=== PATIENT | female | born 2000 | race Caucasian/White ===

== ENCOUNTER 2022-04-02 04:47 | Emergency (ER) | payer OTHER ==
--- NOTE | 2022-04-02 05:09 | ED Physician Documentation ---
PD HPI URI - Stated complaint Stated Complaint: BILAT EAR AND EYE PAIN - Chief complaint Chief Complaint: Heent - History obtained from History obtained from: Patient - History of Present Illness Timing - onset: How many days ago (few) Timing duration: Days (few) Timing details: Gradual onset (she states had URI, congestion, cough about a week ago and was improving, then has started with bilateral ear fullness, pain, and some ringing. Also now with medial eye discahrge and irritation both eyes. No eye pain.), Still present Associated symptoms: Fever (a week ago.), Ear pain (few days worsening, both ears.), Nasal congestion, Dry cough (improving). No: Sore throat Contributing factors: No: Sick contact Recently seen: Not recently seen Review of Systems Constitutional: reports: Fever Eyes: reports: Discharge, Irritation. denies: Decreased vision Ears: reports: Ear pain. denies: Drainage/discharge Nose: reports: Congestion, Sinus pressure / pain Skin: denies: Rash Neurologic: denies: Altered mental status, Headache PD PAST MEDICAL HISTORY - Past Medical History Cardiovascular: None Respiratory: None Endocrine/Autoimmune: None - Present Medications Home Medications: Ambulatory Orders Medication Instructions Recorded Confirmed Amoxicillin 500 mg PO TID #21 cap 04/02/22 Cetirizine [ZyrTEC] 10 mg PO BID #15 tablet 04/02/22 Ketorolac Tromethamine 2 drops EACHEYE TID 6 Days #5 ml 04/02/22 - Allergies Allergies/Adverse Reactions: Allergies Allergy/AdvReac Type Severity Reaction Status Date / Time No Known Drug Allergies Allergy Verified 04/02/22 04:52 PD ED PE NORMAL - Vitals Vital signs reviewed: Yes - General General: Alert and oriented X 3, No acute distress, Well developed/nourished - HEENT HEENT: PERRL, EOMI, Other (the eyes appear well with mild lower conjunctival redness and no discharge. ). No: Ears normal (canals are okay. both tms are red and fluid behind. No perforation. ) - Neck Neck: Supple, no meningeal sign, No adenopathy - Cardiac Cardiac: RRR, No murmur - Respiratory Respiratory: Clear bilaterally - Derm Derm: Normal color, Warm and dry, No rash - Neuro Neuro: Alert and oriented X 3, Normal speech Results - Vitals Vitals: Vital Signs - 24 hr 04/02/22 04/02/22 04:48 05:57 Temperature 36.4 C L Heart Rate 102 H 92 Respiratory 18 18 Rate Blood Pressure 132/105 H 133/78 H O2 Saturation 100 100 Oxygen O2 Source Room air PD Medical Decision Making - ED course Complexity details: considered differential (URI symptoms that were improving and now ears and eye drainage with apparent infection. Presume sinus/nasopharyngeal area secondary infection. ), d/w patient Departure - Departure Disposition: 01 Home, Self Care Clinical Impression: Otitis media, Conjunctival irritation Condition: Stable Record reviewed to determine appropriate education?: Yes Instructions: ED Otitis Media Acute Adult Follow-Up: Thad Padilla MD [Primary Care Provider] - Prescriptions: Amoxicillin 500 mg PO TID #21 cap Ketorolac Tromethamine 2 drops EACHEYE TID 6 Days #5 ml Cetirizine [ZyrTEC] 10 mg PO BID #15 tablet Comments: Your eardrums do appear infected. Given the timing of the symptoms in relation to the recent head cold, I be likely to think a secondary ear infection and this might be bacterial. We can treated with amoxicillin antibiotic 3 times daily for the next week. Also try to decrease the fluid buildup with cetirizine antihistamine twice daily for the next week. Saline no spray or drops to cleanse the nasal passageway we will try to help unclog the eustachian tubes so there is less ringing and pressure. You were given a dose of steroid anti-inflammatory here in the ER and that will last for a few days and should help as well. The eyes are likely irritated from a back pressuring of congestion from the sinus and nasal passage and does not appear to be a localized infection in the eyes itself. We can however help the symptoms with an anti-inflammatory eyedrop 2-3 times daily for the next several days until better. I sent your prescriptions to your preferred pharmacy. Tylenol or ibuprofen if needed for pains or fevers. Discharge Date/Time: 04/02/22 05:59
[2022-04-02] MEDS ORDERED: CETIRIZINE 10 MG TABLET PO STA (05:39)
[2022-04-02] MEDS ORDERED: DEXAMETHASONE 10 MG/ML VIAL PO STA (05:39)
[2022-04-02] MEDS ORDERED: CHERRY SYRUP 10 ML UDC PO ONE (05:39)
[2022-04-02] MEDS ORDERED: AMOXICILLIN 250 MG CAPSULE PO STA (05:39)
[2022-04-02 05:59] VITALS: BP 133/78
== END 2022-04-02 05:59 | disposition home or self-care (01) ==
LOC: ED 04:47
DX: H66.93 Otitis media, unspecified, bilateral (principal); H11.89 Other specified disorders of conjunctiva
CPT/HCPCS: 99283; A9270